=== PATIENT | female | born 1935 | race Caucasian/White ===

== ENCOUNTER 2016-11-01 13:45 | Emergency (ER) | payer MEDICARE ==
[~2016-11-01] VITALS: Wt 71.2 kg
[~2016-11-01 13:45] MED LIST: ACETAMINOPHEN-H1 TA2 PO; ALLOPURINOL100 MG PO; AMARYL2 MG PO; DIOVAN160 MG PO; FLEXERIL10 MG PO; INVOKANA100 M1 PO; LANTUS100 U/ML SC; LEVEMIR10 ML SC; LOSARTAN POTAS100 M1 PO; METFORMIN1000 MG PO; SIMVASTATIN20 MG PO; VALACYCLOVIR HYD1 GM PO
[2016-11-01 14:51] LABS: BASO % 0.3 % (0.0-1.0); EOS # 0.3 10*3/uL (0.0-0.4); EOS % 3.1 % (1.0-4.0); HEMATOCRIT 43.4 % (37.0-47.0); HEMOGLOBIN 14.5 g/dl (12.0-16.0); MEAN CELL VOLUME 92.7 fl (81.0-99.0); MEAN CORPUSCULAR HGB CONC 33.4 g/dl (33.0-37.0); MEAN PLATELET VOLUME 9.7 fl (9.6-12.3); MONO # 0.7 10*3/uL (0.1-1.0); NEUT # 5.9 10*3/uL (2.3-7.9); NEUT % 66.2 % (47.0-73.0); PLATELET COUNT AUTOMATED 217 10*3/uL (130-400); RED BLOOD COUNT 4.68 10*6/uL (4.10-5.10); RED CELL DISTRI WIDTH 12.1 % (0-14.5)
[2016-11-01 15:14] LABS: ALBUMIN 3.1 gm/dl (3.1-4.5); ALKALINE PHOSPHATASE 100 U/L (45-117); BILIRUBIN, TOTAL 0.4 mg/dl (0.2-1.0); BUN 12 mg/dl (7-24); CARBON DIOXIDE 20 mmol/L (21-32); CHLORIDE 113 mmol/L (98-107); EST GLOM FILT AFRICAN AMERICAN 50 ml/min; GLUCOSE 201 mg/dL (65-99); MAGNESIUM 1.8 mg/dL (1.5-2.1); POTASSIUM 4.2 mmol/L (3.5-5.1); SGOT/AST 22 IU/L (3-35); SGPT/ALT 16 U/L (12-78); SODIUM 146 mmol/L (136-145)
[2016-11-01] MEDS ORDERED: LANTUS100 U/ML SC (15:14)
[2016-11-01 15:15] LABS: C-REACTIVE PROTEIN < 0.29 MG/DL (0-0.3)
[2016-11-01 15:16] LABS: TROPONIN I 0.225 ng/ml (<0.045)
[2016-11-01] MEDS ORDERED: GABAPENTIN100 M2 PO (15:17)
[2016-11-01 16:47] LABS: LA>2 REFLEX 2 HR DRAW NOW
== END 2016-11-01 15:29 | disposition short-term general hospital (02) ==
LOC: ED 13:45
PROVIDERS: Student in an Organized Health Care Education/Training Program
DX: T23.201A Burn of second degree of right hand, unspecified site, initial encounter (principal); T20.20XA Burn of second degree of head, face, and neck, unspecified site, initial encounter; T24.202A Burn of second degree of unspecified site of left lower limb, except ankle and foot, initial encounter; T21.12XA Burn of first degree of abdominal wall, initial encounter; T24.101A Burn of first degree of unspecified site of right lower limb, except ankle and foot, initial encounter; I12.9 Hypertensive chronic kidney disease with stage 1 through stage 4 chronic kidney disease, or unspecified chronic kidney disease; N18.3 Chronic kidney disease, stage 3 (moderate); E11.9 Type 2 diabetes mellitus without complications; M10.9 Gout, unspecified; Z79.899 Other long term (current) drug therapy; Z90.710 Acquired absence of both cervix and uterus; Z98.890 Other specified postprocedural states; X08.8XXA Exposure to other specified smoke, fire and flames, initial encounter; Y93.89 Activity, other specified; Y92.009 Unspecified place in unspecified non-institutional (private) residence as the place of occurrence of the external cause; Y99.9 Unspecified external cause status

== ENCOUNTER → 2017-06-06 | Outpatient (CLI) | payer MEDICARE ==
[~2017-06-06] MED LIST changes: +GABAPENTIN100 M2 PO
== END ==
LOC: RESCLI 01:22
DX: E11.65 Type 2 diabetes mellitus with hyperglycemia (principal); E66.9 Obesity, unspecified; I10 Essential (primary) hypertension; M1A.9XX0 Chronic gout, unspecified, without tophus (tophi); E78.5 Hyperlipidemia, unspecified; M19.90 Unspecified osteoarthritis, unspecified site; Z79.4 Long term (current) use of insulin

== ENCOUNTER 2018-04-19 12:50 | Emergency (ER) | payer MEDICARE ==
[~2018-04-19] VITALS: Ht 160 cm; Wt 77.1 kg
== END 2018-04-19 15:28 | disposition home or self-care (01) ==
LOC: ED 12:50
DX: S46.911A Strain of unspecified muscle, fascia and tendon at shoulder and upper arm level, right arm, initial encounter (principal); I12.9 Hypertensive chronic kidney disease with stage 1 through stage 4 chronic kidney disease, or unspecified chronic kidney disease; E11.22 Type 2 diabetes mellitus with diabetic chronic kidney disease; N18.3 Chronic kidney disease, stage 3 (moderate); M10.9 Gout, unspecified; Z79.4 Long term (current) use of insulin; X58.XXXA Exposure to other specified factors, initial encounter; Y93.89 Activity, other specified; Y92.89 Other specified places as the place of occurrence of the external cause; Y99.8 Other external cause status

== ENCOUNTER → 2018-06-20 | Outpatient (CLI) | payer MEDICARE | END | disposition home or self-care (01) | LOC: RESCLI 00:01 | DX: I10 Essential (primary) hypertension (principal); E11.65 Type 2 diabetes mellitus with hyperglycemia; E66.9 Obesity, unspecified; E78.5 Hyperlipidemia, unspecified; M19.90 Unspecified osteoarthritis, unspecified site; M1A.9XX0 Chronic gout, unspecified, without tophus (tophi); Z79.4 Long term (current) use of insulin; Z79.899 Other long term (current) drug therapy; Z88.8 Allergy status to other drugs, medicaments and biological substances ==

== ENCOUNTER → 2018-12-25 | Outpatient (CLI) | payer MEDICARE | END | disposition home or self-care (01) | LOC: RAD 12:11 | DX: M25.452 Effusion, left hip (principal) ==

== ENCOUNTER → 2020-01-02 | Outpatient (CLI) | payer MEDICARE | END | disposition home or self-care (01) | LOC: RESCLI 01:22 | DX: E11.65 Type 2 diabetes mellitus with hyperglycemia (principal); I10 Essential (primary) hypertension; M1A.9XX0 Chronic gout, unspecified, without tophus (tophi); E78.5 Hyperlipidemia, unspecified; M18.12 Unilateral primary osteoarthritis of first carpometacarpal joint, left hand; M19.011 Primary osteoarthritis, right shoulder; Z79.4 Long term (current) use of insulin; Z90.710 Acquired absence of both cervix and uterus; Z98.890 Other specified postprocedural states; Z79.899 Other long term (current) drug therapy; Z79.84 Long term (current) use of oral hypoglycemic drugs ==

== ENCOUNTER 2020-01-14 17:36 | Emergency (ER) | payer MEDICARE ==
[~2020-01-14] VITALS: Ht 160 cm; Wt 73.9 kg
== END 2020-01-14 19:05 | disposition home or self-care (01) ==
LOC: ED 17:36
DX: S09.90XA Unspecified injury of head, initial encounter (principal); I12.9 Hypertensive chronic kidney disease with stage 1 through stage 4 chronic kidney disease, or unspecified chronic kidney disease; E11.22 Type 2 diabetes mellitus with diabetic chronic kidney disease; N18.9 Chronic kidney disease, unspecified; E78.00 Pure hypercholesterolemia, unspecified; M10.9 Gout, unspecified; Z79.84 Long term (current) use of oral hypoglycemic drugs; W19.XXXA Unspecified fall, initial encounter; Y93.89 Activity, other specified; Y92.89 Other specified places as the place of occurrence of the external cause; Y99.8 Other external cause status

== ENCOUNTER → 2020-03-30 | Outpatient (CLI) | payer MEDICARE | END | disposition home or self-care (01) | LOC: US 10:13 | PROVIDERS: ATTEND Nurse Practitioner Primary Care | DX: E04.1 Nontoxic single thyroid nodule (principal) ==

== ENCOUNTER → 2020-04-14 | Outpatient (CLI) | payer MEDICARE ==
[2020-04-14 11:41] LABS: BASO % 0.5 % (0.0-1.0); EOS # 0.4 10*3/uL (0.0-0.4); EOS % 6.7 % (1.0-4.0); LYMPH # 1.9 10*3/uL (1.3-4.4); LYMPH % 30.3 % (27.0-41.0); MEAN CELL VOLUME 94.7 fl (81.0-99.0); MEAN CORPUSCULAR HGB 30.4 pg (27.0-31.0); MEAN CORPUSCULAR HGB CONC 32.1 g/dl (33.0-37.0); MEAN PLATELET VOLUME 9.8 fl (9.6-12.3); MONO # 0.5 10*3/uL (0.1-1.0); MONO % 7.4 % (3.0-9.0); NEUT # 3.4 10*3/uL (2.3-7.9); NEUT % 54.9 % (47.0-73.0); PLATELET COUNT AUTOMATED 213 10*3/uL (130-400); RED BLOOD COUNT 4.54 10*6/uL (4.10-5.10); RED CELL DISTRI WIDTH 12.5 % (0-14.5); WHITE BLOOD COUNT 6.1 10*3/uL (4.8-10.8)
[2020-04-14 12:02] LABS: CREATININE 1.22 mg/dL (0.55-1.02); POTASSIUM 3.8 mmol/L (3.5-5.1); URIC ACID 5.9 mg/dL (2.6-6.0)
[2020-04-15 08:11] LABS: LDL CHOLESTEROL (DIRECT) 41 mg/dL (0-99)
== END | disposition home or self-care (01) ==
LOC: RESCLI 06:07
PROVIDERS: Internal Medicine; ATTEND Student in an Organized Health Care Education/Training Program
DX: E11.65 Type 2 diabetes mellitus with hyperglycemia (principal); I10 Essential (primary) hypertension; M1A.9XX0 Chronic gout, unspecified, without tophus (tophi); E78.5 Hyperlipidemia, unspecified; Z79.899 Other long term (current) drug therapy; Z90.710 Acquired absence of both cervix and uterus; Z98.890 Other specified postprocedural states

== ENCOUNTER → 2020-10-08 | Outpatient (CLI) | payer MEDICARE ==
[2020-10-08 10:09] LABS: HEMATOCRIT 46.5 % (37.0-47.0); MEAN CELL VOLUME 93.6 fl (81.0-99.0); MEAN PLATELET VOLUME 9.5 fl (9.6-12.3); RED BLOOD COUNT 4.97 10*6/uL (4.10-5.10); RED CELL DISTRI WIDTH 12.6 % (0-14.5); WHITE BLOOD COUNT 5.7 10*3/uL (4.8-10.8)
[2020-10-08 10:45] LABS: CREATININE 1.12 mg/dL (0.55-1.02); POTASSIUM 3.9 mmol/L (3.5-5.1)
== END ==
LOC: RESCLI 03:51
PROVIDERS: Internal Medicine; ATTEND Internal Medicine Nephrology
DX: I10 Essential (primary) hypertension (principal); K21.9 Gastro-esophageal reflux disease without esophagitis; M1A.9XX0 Chronic gout, unspecified, without tophus (tophi); E78.5 Hyperlipidemia, unspecified; E11.65 Type 2 diabetes mellitus with hyperglycemia; M19.011 Primary osteoarthritis, right shoulder; Z79.899 Other long term (current) drug therapy; Z79.4 Long term (current) use of insulin

== ENCOUNTER → 2021-05-06 | Outpatient (CLI) | payer MEDICARE ==
[2021-05-06 12:21] LABS: BASO % 0.6 % (0.0-1.0); EOS # 0.4 10*3/uL (0.0-0.4); EOS % 5.6 % (1.0-4.0); HEMATOCRIT 45.4 % (37.0-47.0); LYMPH # 2.5 10*3/uL (1.3-4.4); LYMPH % 34.2 % (27.0-41.0); MEAN CELL VOLUME 95.2 fl (81.0-99.0); MEAN CORPUSCULAR HGB 30.4 pg (27.0-31.0); MEAN CORPUSCULAR HGB CONC 31.9 g/dl (33.0-37.0); MONO # 0.5 10*3/uL (0.1-1.0); MONO % 7.5 % (3.0-9.0); NEUT # 3.7 10*3/uL (2.3-7.9); NEUT % 51.7 % (47.0-73.0); PLATELET COUNT AUTOMATED 265 10*3/uL (130-400); RED BLOOD COUNT 4.77 10*6/uL (4.10-5.10); RED CELL DISTRI WIDTH 12.7 % (0-14.5); WHITE BLOOD COUNT 7.2 10*3/uL (4.8-10.8)
[2021-05-06 12:36] LABS: ALBUMIN 3.2 gm/dl (3.1-4.5); CREATININE 1.11 mg/dL (0.55-1.02); TOTAL PROTEIN 7.9 gm/dL (6.4-8.2)
[2021-05-06 13:08] LABS: VITAMIN D, 25-HYDROXY 30.6 ng/mL (30-100)
== END | disposition home or self-care (01) ==
LOC: RESCLI 00:50
PROVIDERS: Internal Medicine; ATTEND Internal Medicine
DX: Z23 Encounter for immunization (principal); E11.65 Type 2 diabetes mellitus with hyperglycemia; M1A.9XX0 Chronic gout, unspecified, without tophus (tophi); M19.011 Primary osteoarthritis, right shoulder; I10 Essential (primary) hypertension; E78.5 Hyperlipidemia, unspecified; F32.0 Major depressive disorder, single episode, mild; Z12.31 Encounter for screening mammogram for malignant neoplasm of breast; R26.81 Unsteadiness on feet; Z79.899 Other long term (current) drug therapy; Z98.890 Other specified postprocedural states

== ENCOUNTER → 2021-05-28 | Outpatient (CLI) | payer MEDICARE | END | disposition home or self-care (01) | LOC: RAD 09:00 | PROVIDERS: ATTEND Internal Medicine | DX: Z13.820 Encounter for screening for osteoporosis (principal); M81.0 Age-related osteoporosis without current pathological fracture; M1A.9XX0 Chronic gout, unspecified, without tophus (tophi); M19.011 Primary osteoarthritis, right shoulder; R26.81 Unsteadiness on feet; Z78.0 Asymptomatic menopausal state ==

== ENCOUNTER 2021-11-24 00:08 | Emergency (ER) | payer MEDICARE ==
[2021-11-24 03:51] LABS: BASO % 0.3 % (0.0-1.0); EOS # 0.2 10*3/uL (0.0-0.4); HEMATOCRIT 39.5 % (37.0-47.0); LYMPH # 1.8 10*3/uL (1.3-4.4); LYMPH % 24.2 % (27.0-41.0); MEAN CELL VOLUME 94.7 fl (81.0-99.0); MEAN CORPUSCULAR HGB 30.7 pg (27.0-31.0); MEAN CORPUSCULAR HGB CONC 32.4 g/dl (33.0-37.0); MEAN PLATELET VOLUME 9.9 fl (9.6-12.3); MONO # 0.4 10*3/uL (0.1-1.0); MONO % 6.1 % (3.0-9.0); NEUT # 4.8 10*3/uL (2.3-7.9); PLATELET COUNT AUTOMATED 192 10*3/uL (130-400); RED BLOOD COUNT 4.17 10*6/uL (4.10-5.10); RED CELL DISTRI WIDTH 13.4 % (0-14.5); WHITE BLOOD COUNT 7.2 10*3/uL (4.8-10.8)
[2021-11-24 04:04] LABS: ACT PARTIAL THROMBO TIME 26.3 SECONDS (20.0-32.1)
[2021-11-24 04:07] LABS: CREATININE 1.08 mg/dL (0.55-1.02); POTASSIUM 3.8 mmol/L (3.5-5.1); TOTAL PROTEIN 6.8 gm/dL (6.4-8.2)
== END 2021-11-24 08:06 | disposition home or self-care (01) ==
LOC: ED 00:08
PROVIDERS: Emergency Medicine
DX: S06.6X0A Traumatic subarachnoid hemorrhage without loss of consciousness, initial encounter (principal); Z90.710 Acquired absence of both cervix and uterus; Z98.890 Other specified postprocedural states; W18.39XA Other fall on same level, initial encounter; Y93.89 Activity, other specified; Y92.89 Other specified places as the place of occurrence of the external cause; Y99.8 Other external cause status

== ENCOUNTER 2021-12-10 14:28 | Emergency (ER) | payer MEDICARE ==
[~2021-12-10] VITALS: Ht 160 cm; Wt 66.2 kg
[2021-12-10] MEDS ORDERED: AMLODIPINE BESYL5 MG PO (15:29)
[2021-12-10] MEDS ORDERED: SIMVASTATIN20 MG PO (15:30)
[2021-12-10] MEDS ORDERED: METOPROLOL SUCC50 M1 PO (15:30)
[2021-12-10] MEDS ORDERED: ALLOPURINOL100 MG PO (15:30)
[2021-12-10] MEDS ORDERED: RAMIPRIL2.5 MG PO (15:31)
[2021-12-10] MEDS ORDERED: NORVASC5 MG PO (15:32)
== END 2021-12-10 17:05 | disposition short-term general hospital (02) ==
LOC: ED 14:28
DX: S06.5X0A Traumatic subdural hemorrhage without loss of consciousness, initial encounter (principal); W18.39XA Other fall on same level, initial encounter; Y93.89 Activity, other specified; Y92.89 Other specified places as the place of occurrence of the external cause; Y99.8 Other external cause status

== ENCOUNTER → 2022-05-25 | Outpatient (CLI) | payer MEDICARE ==
[~2022-05-25] MED LIST changes: +AMLODIPINE BESYL5 MG PO; +METOPROLOL SUCC50 M1 PO; +NORVASC5 MG PO; +RAMIPRIL2.5 MG PO
== END | disposition home or self-care (01) ==
LOC: RESCLI 01:17
PROVIDERS: ATTEND Family Medicine
DX: I48.0 Paroxysmal atrial fibrillation (principal); M1A.9XX0 Chronic gout, unspecified, without tophus (tophi); E11.65 Type 2 diabetes mellitus with hyperglycemia; F41.9 Anxiety disorder, unspecified; E78.5 Hyperlipidemia, unspecified; I10 Essential (primary) hypertension; Z29.8 Encounter for other specified prophylactic measures; M19.011 Primary osteoarthritis, right shoulder; Z90.710 Acquired absence of both cervix and uterus; Z98.890 Other specified postprocedural states; Z79.4 Long term (current) use of insulin; Z79.84 Long term (current) use of oral hypoglycemic drugs; Z79.899 Other long term (current) drug therapy

== ENCOUNTER → 2022-06-22 | Outpatient (CLI) | payer MEDICARE | END | disposition home or self-care (01) | LOC: RAD 11:23 | PROVIDERS: ATTEND Family Medicine | DX: R05.8 Other specified cough (principal) ==

== ENCOUNTER → 2023-02-07 | Outpatient (CLI) | payer MEDICARE | END | disposition home or self-care (01) | LOC: RAD 09:58 | PROVIDERS: ATTEND Nurse Practitioner Primary Care | DX: R05.3 Chronic cough (principal) ==

== ENCOUNTER → 2023-05-26 | Outpatient (CLI) | payer MEDICARE | END | disposition home or self-care (01) | LOC: RESCLI 03:07 | PROVIDERS: ATTEND Internal Medicine | DX: I48.0 Paroxysmal atrial fibrillation (principal); E11.9 Type 2 diabetes mellitus without complications; I10 Essential (primary) hypertension; E11.65 Type 2 diabetes mellitus with hyperglycemia; M19.011 Primary osteoarthritis, right shoulder; R05.9 Cough, unspecified; E78.5 Hyperlipidemia, unspecified; M1A.9XX0 Chronic gout, unspecified, without tophus (tophi); R05.8 Other specified cough; K21.9 Gastro-esophageal reflux disease without esophagitis; F41.9 Anxiety disorder, unspecified; R56.9 Unspecified convulsions; Z79.2 Long term (current) use of antibiotics; Z79.899 Other long term (current) drug therapy; Z86.79 Personal history of other diseases of the circulatory system ==

== ENCOUNTER 2023-12-12 14:02 | Inpatient (IN) | payer MEDICARE ==
[~2023-12-12] VITALS: Ht 160 cm; Wt 64.0 kg
[~2023-12-12 14:02] MED LIST changes: +METFORMIN HCL1000 M1 PO; -METFORMIN1000 MG PO
[2023-12-12 15:08] VITALS: BP 141/56
[2023-12-12 18:04] LABS: BASO % 0.6 % (0.0-1.0); EOS # 0.2 10*3/uL (0.0-0.4); EOS % 4.1 % (1.0-4.0); LYMPH # 2.1 10*3/uL (1.3-4.4); LYMPH % 42.2 % (27.0-41.0); MEAN CELL VOLUME 94.9 fl (81.0-99.0); MEAN CORPUSCULAR HGB 29.6 pg (27.0-31.0); MEAN CORPUSCULAR HGB CONC 31.2 g/dl (33.0-37.0); MEAN PLATELET VOLUME 9.6 fl (9.6-12.3); MONO # 0.5 10*3/uL (0.1-1.0); MONO % 9.2 % (3.0-9.0); NEUT # 2.2 10*3/uL (2.3-7.9); NEUT % 43.9 % (47.0-73.0); PLATELET COUNT AUTOMATED 217 10*3/uL (130-400); RED BLOOD COUNT 4.32 10*6/uL (4.10-5.10); RED CELL DISTRI WIDTH 13.2 % (0-14.5); WHITE BLOOD COUNT 4.9 10*3/uL (4.8-10.8)
[2023-12-12 18:16] LABS: ACT PARTIAL THROMBO TIME 28.9 SECONDS (20.0-32.1)
[2023-12-12 18:24] LABS: POTASSIUM 4.2 mmol/L (3.4-5.1); TOTAL PROTEIN 7.3 gm/dL (6.0-8.0)
[2023-12-12] MEDS ORDERED: FUROSEMIDE 20 MG/2 ML VIAL IV ONE (19:10)
[2023-12-12] MEDS ORDERED: ZOLOFT50 MG PO (20:51)
[2023-12-12 20:52] VITALS: BP 162/70
[2023-12-12] MEDS ORDERED: ACETAMINOPHEN 650 MG SUPP R PRN (22:35)
[2023-12-12] MEDS ORDERED: ACETAMINOPHEN 325 MG TAB PO PRN (22:35)
[2023-12-12] MEDS ORDERED: BISACODYL 10 MG SUPP R PRN (22:35)
[2023-12-12] MEDS ORDERED: Magnesium Hydroxide 30 ML UDC PO PRN (22:35)
[2023-12-12] MEDS ORDERED: BISACODYL 5 MG TAB PO PRN (22:35)
[2023-12-12] MEDS ORDERED: IOHEXOL 300 MG/ML 100 ML VIAL IV ONE (22:45)
[2023-12-12] MEDS ORDERED: BENZONATATE 100 MG CAP PO PRN (23:30)
[2023-12-12] MEDS ORDERED: AZITHROMYCIN 250 ML IV SCH (23:30)
[2023-12-12] MEDS ORDERED: Ceftriaxone Sodium 1 GM in SYRINGE INFUSION 10 ML IV SCH (23:37)
[2023-12-13 03:47] VITALS: BP 158/76
[2023-12-13 04:00] VITALS: BP 166/72
[2023-12-13 05:20] LABS: FREE T4 1.09 ng/dl (0.89-1.76); POTASSIUM 3.8 mmol/L (3.4-5.1); TOTAL PROTEIN 7.2 gm/dL (6.0-8.0)
[2023-12-13 05:23] LABS: VITAMIN D, 25-HYDROXY 25.4 ng/mL (30-100)
[2023-12-13 06:10] LABS: BASO % 0.6 % (0.0-1.0); EOS # 0.2 10*3/uL (0.0-0.4); EOS % 5.2 % (1.0-4.0); HEMATOCRIT 38.5 % (37.0-47.0); LYMPH % 42.5 % (27.0-41.0); MEAN CELL VOLUME 92.1 fl (81.0-99.0); MEAN CORPUSCULAR HGB 29.7 pg (27.0-31.0); MEAN CORPUSCULAR HGB CONC 32.2 g/dl (33.0-37.0); MEAN PLATELET VOLUME 10.4 fl (9.6-12.3); MONO # 0.4 10*3/uL (0.1-1.0); MONO % 9.2 % (3.0-9.0); NEUT % 42.3 % (47.0-73.0); PLATELET COUNT AUTOMATED 216 10*3/uL (130-400); RED BLOOD COUNT 4.18 10*6/uL (4.10-5.10); RED CELL DISTRI WIDTH 13.2 % (0-14.5); WHITE BLOOD COUNT 4.7 10*3/uL (4.8-10.8)
[2023-12-13 08:00] VITALS: BP 140/61
[2023-12-13] MEDS ORDERED: GUAIFENESIN 600 MG TAB ER PO SCH (10:00)
[2023-12-13] MEDS ORDERED: FUROSEMIDE 40 MG/4 ML VIAL IV SCH (10:00)
[2023-12-13] MEDS ORDERED: Vitamin D 1,000 IU TAB (25 MCG) PO SCH (10:00)
[2023-12-13 12:00] VITALS: BP 137/56
[2023-12-13] MEDS ORDERED: PEPCID40 MG PO (13:05)
[2023-12-13] MEDS ORDERED: ROSUVASTATIN CA10 MG PO (13:06)
[2023-12-13] MEDS ORDERED: KEPPRA XR500 MG PO (13:07)
[2023-12-13] MEDS ORDERED: PROPAFENONE HC225 MG PO (13:07)
[2023-12-13] MEDS ORDERED: BENZONATATE100 M1 PO (13:08)
[2023-12-13] MEDS ORDERED: RAMIPRIL5 MG PO (13:15)
[2023-12-13 20:00] VITALS: BP 120/68
[2023-12-13 22:00] VITALS: BP 128/71
[2023-12-13] MEDS ORDERED: METOPROLOL SUCCINATE XR 50 MG TAB PO SCH (22:00)
[2023-12-13] MEDS ORDERED: [UNRECOGNIZED DRUG - OTHER] PO SCH (22:00)
[2023-12-13] MEDS ORDERED: LEVETIRACETAM 500 MG TAB PO SCH (22:00)
[2023-12-13] MEDS ORDERED: ALLOPURINOL 100 MG TAB PO SCH (22:00)
[2023-12-13] MEDS ORDERED: amLODIPine besylate 5 MG TAB PO SCH (22:00)
[2023-12-14 07:26] LABS: POTASSIUM 3.8 mmol/L (3.4-5.1)
[2023-12-14 07:30] VITALS: BP 123/57
[2023-12-14] MEDS ORDERED: FUROSEMIDE 40 MG TAB PO SCH (10:00)
[2023-12-14] MEDS ORDERED: FAMOTIDINE 20 MG TAB PO SCH (10:00)
[2023-12-14] MEDS ORDERED: Rosuvastatin Calcium 10 MG TABLET PO SCH (10:00)
[2023-12-14] MEDS ORDERED: Sertraline Hydrochloride 50 MG TAB PO SCH (10:00)
[2023-12-14] MEDS ORDERED: LISINOPRIL 20 MG TAB PO SCH (10:00)
[2023-12-14] MEDS ORDERED: FUROSEMIDE40 MG PO (11:25)
[2023-12-14] MEDS ORDERED: ZITHROMAX250 MG PO (11:25)
== END 2023-12-14 12:15 | disposition home or self-care (01) | DRG 177 ==
LOC: ED 14:02 → EDHOLD 22:32
PROVIDERS: Nurse Practitioner; Student in an Organized Health Care Education/Training Program; ADMIT Student in an Organized Health Care Education/Training Program; ATTEND Student in an Organized Health Care Education/Training Program
DX: J15.69 Pneumonia due to other Gram-negative bacteria (principal); I50.31 Acute diastolic (congestive) heart failure; I13.0 Hypertensive heart and chronic kidney disease with heart failure and stage 1 through stage 4 chronic kidney disease, or unspecified chronic kidney disease; R04.2 Hemoptysis; E44.0 Moderate protein-calorie malnutrition; J91.8 Pleural effusion in other conditions classified elsewhere; Z66 Do not resuscitate; Z51.5 Encounter for palliative care; I48.0 Paroxysmal atrial fibrillation; N18.30 Chronic kidney disease, stage 3 unspecified; E87.8 Other disorders of electrolyte and fluid balance, not elsewhere classified; E11.22 Type 2 diabetes mellitus with diabetic chronic kidney disease; E11.65 Type 2 diabetes mellitus with hyperglycemia; M1A.9XX0 Chronic gout, unspecified, without tophus (tophi); K80.20 Calculus of gallbladder without cholecystitis without obstruction; I71.43 Infrarenal abdominal aortic aneurysm, without rupture; E04.1 Nontoxic single thyroid nodule; E55.9 Vitamin D deficiency, unspecified; I08.0 Rheumatic disorders of both mitral and aortic valves; Z90.710 Acquired absence of both cervix and uterus; Z86.73 Personal history of transient ischemic attack (TIA), and cerebral infarction without residual deficits; Z79.4 Long term (current) use of insulin; Z79.84 Long term (current) use of oral hypoglycemic drugs; Z79.899 Other long term (current) drug therapy

== ENCOUNTER 2024-03-13 10:30 | Emergency (ER) | payer MEDICARE ==
[~2024-03-13] VITALS: Ht 165.1 cm; Wt 55.9 kg
[~2024-03-13 10:30] MED LIST changes: +BENZONATATE100 M1 PO; +FUROSEMIDE40 MG PO; +KEPPRA XR500 MG PO; +PEPCID40 MG PO; +PROPAFENONE HC225 MG PO; +RAMIPRIL5 MG PO; +ROSUVASTATIN CA10 MG PO; +ZITHROMAX250 MG PO; +ZOLOFT50 MG PO
[2024-03-13] MEDS ORDERED: SODIUM CHLORIDE 0.9% 500 ML IV ONE (10:50)
[2024-03-13 10:59] LABS: BASO % 0.2 % (0.0-1.0); EOS # 0.2 10*3/uL (0.0-0.4); EOS % 1.7 % (1.0-4.0); HEMATOCRIT 37.1 % (37.0-47.0); LYMPH # 3.6 10*3/uL (1.3-4.4); LYMPH % 32.9 % (27.0-41.0); MEAN CELL VOLUME 93.2 fl (81.0-99.0); MEAN CORPUSCULAR HGB 30.9 pg (27.0-31.0); MEAN CORPUSCULAR HGB CONC 33.2 g/dl (33.0-37.0); MEAN PLATELET VOLUME 10.2 fl (9.6-12.3); MONO # 0.9 10*3/uL (0.1-1.0); MONO % 8.5 % (3.0-9.0); NEUT # 6.1 10*3/uL (2.3-7.9); NEUT % 56.2 % (47.0-73.0); PLATELET COUNT AUTOMATED 176 10*3/uL (130-400); RED BLOOD COUNT 3.98 10*6/uL (4.10-5.10); RED CELL DISTRI WIDTH 13.7 % (0-14.5); WHITE BLOOD COUNT 10.8 10*3/uL (4.8-10.8)
[2024-03-13] MEDS ORDERED: FUROSEMIDE20 M1 PO (11:07)
[2024-03-13 11:11] LABS: ACT PARTIAL THROMBO TIME 21.6 SECONDS (20.0-32.1)
[2024-03-13 11:16] LABS: TOTAL PROTEIN 6.5 gm/dL (6.0-8.0)
== END 2024-03-13 14:37 | disposition home or self-care (01) ==
LOC: ED 10:30
PROVIDERS: Emergency Medicine
DX: E11.22 Type 2 diabetes mellitus with diabetic chronic kidney disease (principal); I12.9 Hypertensive chronic kidney disease with stage 1 through stage 4 chronic kidney disease, or unspecified chronic kidney disease; N18.4 Chronic kidney disease, stage 4 (severe); E11.65 Type 2 diabetes mellitus with hyperglycemia; Z79.899 Other long term (current) drug therapy; Z79.84 Long term (current) use of oral hypoglycemic drugs; Z90.710 Acquired absence of both cervix and uterus; Z98.890 Other specified postprocedural states

== ENCOUNTER → 2024-11-28 | Outpatient (CLI) | payer MEDICARE ==
[~2024-11-28] MED LIST changes: +FUROSEMIDE20 M1 PO
== END | disposition home or self-care (01) ==
LOC: RAD 13:56
PROVIDERS: ATTEND Family Medicine
DX: R05.2 Subacute cough (principal)

== ENCOUNTER → 2024-12-05 | Outpatient (CLI) | payer MEDICARE | END | disposition home or self-care (01) | LOC: RAD 16:19 | PROVIDERS: ATTEND Internal Medicine | DX: J98.4 Other disorders of lung (principal); J18.9 Pneumonia, unspecified organism; I70.0 Atherosclerosis of aorta ==